=== PATIENT | male | born 1990 | race Caucasian/White ===

== ENCOUNTER 2017-10-06 21:22 | Emergency (ER) | payer OTHER ==
[~2017-10-06] VITALS: Ht 182.9 cm; Wt 90.7 kg
[~2017-10-06 21:22] MED LIST: CYCL10 PO; HYDR1TAB94 PO; Naprosyn500 MG PO
== END 2017-10-06 22:32 | disposition home or self-care (01) ==
LOC: ER 21:22
DX: S01.111A Laceration without foreign body of right eyelid and periocular area, initial encounter (principal); S01.81XA Laceration without foreign body of other part of head, initial encounter; F17.200 Nicotine dependence, unspecified, uncomplicated; V29.40XA Motorcycle driver injured in collision with unspecified motor vehicles in traffic accident, initial encounter; Z88.0 Allergy status to penicillin
CPT/HCPCS: 12014; 99283